=== PATIENT | female | born 1960 | race Caucasian/White ===

== ENCOUNTER 2018-09-20 16:32 | Emergency (ER) | payer MEDICARE, OTHER ==
[2018-09-20 17:28] VITALS: BP 117/70
[2018-09-20] MEDS ORDERED: Amoxicillin/Clavulanate TAB* 875 MG PO ONE (17:40)
[2018-09-20] MEDS ORDERED: Albuterol 2.5 MG/3 ML NEB.SOL* (0.083%) INH ONE (17:40)
[2018-09-20] MEDS ORDERED: Dexamethasone IV* 4 MG/ML 1 ML (4 MG) IV SLOW PU ONE (17:40)
[2018-09-20] MEDS ORDERED: Dexamethasone IV* 4 MG/ML 1 ML (4 MG) PO ONE (17:42)
--- NOTE | 2018-09-20 17:42 | UC ---
Throat Pain/Nasal Miguel HPI - HPI Summary HPI Summary: 58-year-old woman comes in with a chief complaint of upper respiratory tract infection symptoms. Started about 5 days ago with runny nose sore throat. She has a postnasal drip. The last day she is developed laryngitis. Does hurt to swallow. Denies difficulty breathing through her airway at rest. When she starts coughing she has a hard time breathing. She also has some chest congestion. - History of Current Complaint Chief Complaint: UCRespiratory Stated Complaint: COUGH/LARYNGITIS Time Seen by Provider: 09/20/18 17:31 Pain Intensity: 9 - Allergies/Home Medications Allergies/Adverse Reactions: Allergies Allergy/AdvReac Type Severity Reaction Status Date / Time strawberry Allergy Severe Rash And Verified 09/20/18 17:18 Itching Home Medications: Home Medications Aspirin TAB* [Aspirin 325 MG TAB*] 0.25 tab PO DAILY 09/20/18 [History Confirmed 09/20/18] PMH/Surg Hx/FS Hx/Imm Hx Previously Healthy: Yes Endocrine History: Hypothyroidism GI/ History: Gastroesophageal Reflux - Surgical History Surgical History: Yes Surgery Procedure, Year, and Place: Neck fusion C 5,6,7. Left shoulder calcium removed and tear repaired. Partial hysterectomy. Tonsillectomy and adenoidectomy. RIGHT WRIST SURGERY. - Family History Known Family History: Positive: Non-Contributory - Social History Alcohol Use: None Substance Use Type: None Smoking Status (MU): Never Smoked Tobacco - Immunization History Most Recent Tetanus Shot: unknown Review of Systems All Other Systems Reviewed And Are Negative: Yes Constitutional: Positive: Negative Skin: Positive: Negative Eyes: Positive: Negative ENT: Positive: Sore Throat, Nasal Discharge, Sinus Congestion Respiratory: Positive: Shortness Of Breath - SEE HPI, Cough Cardiovascular: Positive: Negative Gastrointestinal: Positive: Negative Motor: Positive: Negative Neurovascular: Positive: Negative Musculoskeletal: Positive: Negative Neurological: Positive: Negative Psychological: Positive: Negative Is Patient Immunocompromised?: No Physical Exam Triage Information Reviewed: Yes Appearance: No Pain Distress, Well-Nourished, Ill-Appearing - MILD Vital Signs: Initial Vital Signs Temp 97.9 F 09/20/18 17:21 Pulse 82 09/20/18 17:21 Resp 16 09/20/18 17:21 BP 117/70 09/20/18 17:21 Pulse Ox 98 09/20/18 17:21 Vital Signs Reviewed: Yes Eye Exam: Normal Eyes: Positive: Conjunctiva Clear ENT: Positive: Pharyngeal erythema, Uvula midline, Other - Patient does have decreased volume of the patient does have a decreased volume of voice. She is not tripoding. It does not sound like a hot potato voice. Posterior pharynx is symmetric there is no sign of a peritonsillar abscess or decrease size of the oropharynx.. Negative: Tonsillar swelling, Tonsillar exudate Neck: Positive: Supple Respiratory: Positive: Lungs clear, Normal breath sounds, No respiratory distress, Rhonchi. Negative: Stridor Cardiovascular: Positive: RRR Musculoskeletal: Positive: Strength Intact, ROM Intact Neurological: Positive: Alert, Muscle Tone Normal Psychological Exam: Normal Psychological: Positive: Normal Response To Family, Age Appropriate Behavior Skin Exam: Normal Throat Pain/Nasal Course/Dx - Course Course Of Treatment: And clinic patient was given Decadron 10 mg by mouth a single dose of Augmentin and an albuterol nebulizer. No problems with the airway. At this time it appears to be laryngitis without any airway compromise. I discussed with the patient and her that if there is any problems with breathing she needs to go directly to the emergency department. - Differential Dx/Diagnosis Provider Diagnosis: Laryngitis Discharge - Sign-Out/Discharge Documenting (check all that apply): Patient Departure All imaging exams completed and their final reports reviewed: No Studies - Discharge Plan Condition: Stable Disposition: HOME Prescriptions: Albuterol HFA INHALER* [Ventolin HFA Inhaler*] 2 puff INH Q4H PRN #1 mdi PRN Reason: Wheezing Amoxicillin/Clavulanate TAB* [Augmentin TAB 875*] 875 mg PO BID #19 tab predniSONE TAB* [Deltasone 20 MG TAB*] 40 mg PO DAILY #8 tab Patient Education Materials: Laryngitis (ED) Referrals: [facility] [Outside] Additional Instructions: FOLLOW UP WITH YOUR DOCTOR IF NOT COMPLETELY IMPROVED. GO TAJ THE EMERGENCY DEPARTMENT IF WORSE; DIFFICULTY BREATHING OR SWALLOWING, YOU FEEL ILL OR ANY QUESTIONS OR CONCERNS. - Billing Disposition and Condition Condition: STABLE Disposition: Home
== END 2018-09-20 18:38 | disposition home or self-care (01) ==
LOC: UCCORT 16:32
DX: J04.0 Acute laryngitis (principal)
CPT/HCPCS: 99213; A9270-GY; G0463; J1100